=== PATIENT | female | born 1950 | race Native Hawaiian/Other Pacific Islander ===

== ENCOUNTER 2019-09-28 19:08 | Emergency (ER) | payer OTHER ==
[~2019-09-28] VITALS: Ht 152.4 cm; Wt 47.2 kg
[2019-09-28 19:08] VITALS: BP 114/59; TEMP 97.3
[2019-09-28 19:31] LABS: PLATELET COUNT 321 K/uL (152-353)
[2019-09-28 19:38] LABS: POTASSIUM 2.7 mmol/L (3.6-5.2)
[2019-09-28] MEDS ORDERED: BINOSTO70 MG PO (21:43)
[2019-09-28] MEDS ORDERED: ANTACID PO (21:44)
[2019-09-28] MEDS ORDERED: CEFUROXIME500 MG PO (21:45)
[2019-09-28] MEDS ORDERED: COLESTIPOL1 GM PO (21:46)
[2019-09-28] MEDS ORDERED: FAMOTIDINE40 MG PO (21:47)
[2019-09-28] MEDS ORDERED: [UNRECOGNIZED DRUG - OTHER] PO (21:47)
[2019-09-28] MEDS ORDERED: FERRETTS325 MG PO (21:48)
[2019-09-28] MEDS ORDERED: FLONASE AL50 MCG/AC1 NAS (21:49)
[2019-09-28] MEDS ORDERED: HIPREX1 GM PO (21:49)
[2019-09-28] MEDS ORDERED: HYDR5TAB9 PO (21:50)
[2019-09-28] MEDS ORDERED: LOMOTIL2.5 MG PO (21:51)
[2019-09-28] MEDS ORDERED: XALATAN0.005 % OPTH (21:51)
[2019-09-28] MEDS ORDERED: MYSOLINE50 MG PO (21:52)
[2019-09-28] MEDS ORDERED: METOPROLOL25 M1 PO (21:52)
[2019-09-28] MEDS ORDERED: PROBIOTI1 PO (21:53)
[2019-09-28] MEDS ORDERED: VENLAFAXINE150 M1 PO (21:53)
[2019-09-28] MEDS ORDERED: ROPINIROLE1 MG PO (21:54)
[2019-09-28] MEDS ORDERED: TOPAMAX100 MG PO (21:54)
[2019-09-28] MEDS ORDERED: DIAZ2TAB PO (21:55)
[2019-09-28] MEDS ORDERED: VENLAFAXINE225 MG PO (21:55)
[2019-09-28] MEDS ORDERED: VITAMIN B1100 M1 PO (21:56)
[2019-09-28] MEDS ORDERED: VITAMIN D50000 UNIT PO (21:56)
[2019-09-28] MEDS ORDERED: ZYRTEC ALLERGY10 M1 PO (21:57)
== END 2019-09-28 20:46 | disposition other institution (70) ==
LOC: ED 19:08
PROVIDERS: Emergency Medicine
DX: F32.89 Other specified depressive episodes (principal); E87.6 Hypokalemia; N39.0 Urinary tract infection, site not specified; E86.0 Dehydration; Z00.8 Encounter for other general examination
CPT/HCPCS: 36415; 80053; 81000; 85027; 87088; 93005; 99283

== ENCOUNTER 2019-10-06 06:38 | Inpatient (IN) | payer OTHER ==
[~2019-10-06] VITALS: Ht 152.4 cm; Wt 44.0 kg
[2019-10-06] VITALS (27 sets, daily range): BP systolic 75–129; BP diastolic 19–82; TEMP 97.3–99.4; Ht 152.4 cm; Wt 44.0 kg
[~2019-10-06 06:38] MED LIST: ANTACID PO; BINOSTO70 MG PO; CEFUROXIME500 MG PO; COLESTIPOL1 GM PO; DIAZ2TAB PO; FAMOTIDINE40 MG PO; FERRETTS325 MG PO; FLONASE AL50 MCG/AC1 NAS; HIPREX1 GM PO; HYDR5TAB9 PO; LOMOTIL2.5 MG PO; METOPROLOL25 M1 PO; MYSOLINE50 MG PO; PROBIOTI1 PO; ROPINIROLE1 MG PO; TOPAMAX100 MG PO; VENLAFAXINE150 M1 PO; VENLAFAXINE225 MG PO; VITAMIN B1100 M1 PO; VITAMIN D50000 UNIT PO; XALATAN0.005 % OPTH; ZYRTEC ALLERGY10 M1 PO; [UNRECOGNIZED DRUG - OTHER] PO
[2019-10-06 07:58] LABS: SODIUM 138 mmol/L (136-145)
[2019-10-06 08:01] LABS: PLATELET COUNT 537 K/uL (152-353)
[2019-10-07] VITALS (22 sets, daily range): BP systolic 84–119; BP diastolic 37–75; TEMP 97.6–99.1
[2019-10-07 05:41] LABS: PLATELET COUNT 382 K/uL (152-353)
[2019-10-07 05:51] LABS: POTASSIUM 4.4 mmol/L (3.6-5.2)
[2019-10-08] VITALS (12 sets, daily range): BP systolic 82–120; BP diastolic 40–75; TEMP 97.5–98.9
[2019-10-08 05:35] LABS: PLATELET COUNT 310 K/uL (152-353)
[2019-10-08 06:03] LABS: POTASSIUM 4.1 mmol/L (3.6-5.2)
[2019-10-08] MEDS ORDERED: [UNRECOGNIZED DRUG - CODE] IV (14:40)
[2019-10-09] VITALS (9 sets, daily range): BP systolic 94–142; BP diastolic 39–73; TEMP 97.1–98.7
[2019-10-09 09:07] LABS: POTASSIUM 4.3 mmol/L (3.6-5.2)
[2019-10-09 11:03] LABS: PLATELET COUNT 306 K/uL (152-353)
[2019-10-10] VITALS (21 sets, daily range): BP systolic 87–128; BP diastolic 44–79; TEMP 98.1–99.4
[2019-10-10 05:48] LABS: PLATELET COUNT 217 K/uL (152-353)
[2019-10-10 06:53] LABS: POTASSIUM 3.6 mmol/L (3.6-5.2)
[2019-10-11] VITALS (12 sets, daily range): BP systolic 105–123; BP diastolic 51–68; TEMP 97.6–98.6
[2019-10-12] VITALS: BP 119/69; TEMP 98.5
[2019-10-12 04:00] VITALS: BP 115/73; TEMP 98.1
[2019-10-12 08:54] LABS: PLATELET COUNT 261 K/uL (152-353)
[2019-10-12 08:58] LABS: POTASSIUM 3.1 mmol/L (3.6-5.2)
[2019-10-13] VITALS (7 sets, daily range): BP systolic 103–137; BP diastolic 40–69; TEMP 98.2–98.6
[2019-10-13 05:46] LABS: PLATELET COUNT 237 K/uL (152-353)
[2019-10-13 06:02] LABS: POTASSIUM 2.7 mmol/L (3.6-5.2)
[2019-10-14] VITALS (11 sets, daily range): BP systolic 103–127; BP diastolic 49–95; TEMP 97–98.6
[2019-10-14 05:50] LABS: POTASSIUM 3.5 mmol/L (3.6-5.2)
[2019-10-14] MEDS ORDERED: MEGESTROL AC40 MG/ML PO (09:29)
== END 2019-10-14 19:45 | DRG 698 ==
LOC: ED 06:38 → ICU 09:20
PROVIDERS: Family Medicine; Internal Medicine; Internal Medicine Endocrinology, Diabetes & Metabolism; ADMIT Family Medicine
DX: T83.518A Infection and inflammatory reaction due to other urinary catheter, initial encounter (principal); A41.89 Other specified sepsis; N39.0 Urinary tract infection, site not specified; F02.81 Dementia in other diseases classified elsewhere, unspecified severity, with behavioral disturbance; F33.2 Major depressive disorder, recurrent severe without psychotic features; N17.8 Other acute kidney failure; E46 Unspecified protein-calorie malnutrition; Y84.6 Urinary catheterization as the cause of abnormal reaction of the patient, or of later complication, without mention of misadventure at the time of the procedure; Y92.238 Other place in hospital as the place of occurrence of the external cause; G30.8 Other Alzheimer's disease; N18.3 Chronic kidney disease, stage 3 (moderate); J44.9 Chronic obstructive pulmonary disease, unspecified; K21.9 Gastro-esophageal reflux disease without esophagitis; N31.2 Flaccid neuropathic bladder, not elsewhere classified; M15.8 Other polyosteoarthritis; I12.9 Hypertensive chronic kidney disease with stage 1 through stage 4 chronic kidney disease, or unspecified chronic kidney disease; R00.0 Tachycardia, unspecified; E83.51 Hypocalcemia; E87.6 Hypokalemia; E83.42 Hypomagnesemia
CPT/HCPCS: 36415; 36600; 80048; 80053; 81000; 82040; 82150; 82550; 82570; 82805; 83605; 83630; 83690; 83735; 83880; 84300; 84484; 85027; 87040; 87086; 87088; 87324; 87328; 87329; 87449; 89050; 93005; 94760; 96360; 96365; 96375; 96376; 99285; J0610; J0696; J1160; J2405; J3475; J3480; J3490

== ENCOUNTER 2021-08-07 17:10 | Emergency (ER) | payer OTHER ==
[~2021-08-07] VITALS: Ht 152.4 cm; Wt 44.0 kg
[2021-08-07 17:10] VITALS: BP 120/60; TEMP 98.1
[~2021-08-07 17:10] MED LIST changes: +CULTURELL3 PO; +MEGESTROL AC40 MG/ML PO; -PROBIOTI1 PO; +[UNRECOGNIZED DRUG - CODE] IV
[2021-08-07 17:48] LABS: PLATELET COUNT 257 K/uL (152-353)
[2021-08-07 17:57] LABS: POTASSIUM 4.3 mmol/L (3.6-5.2)
[2021-08-08] MEDS ORDERED: VITAMIN D1000 UNIT PO (09:06)
[2021-08-08] MEDS ORDERED: AZO D MANNOSE PO (09:08)
[2021-08-08] MEDS ORDERED: [UNRECOGNIZED DRUG - OTHER] EX (09:10)
[2021-08-08] MEDS ORDERED: LOPERAMIDE2 MG PO (09:10)
[2021-08-08] MEDS ORDERED: FERROUS SULF325 M1 PO (09:11)
[2021-08-08] MEDS ORDERED: LORA0.5T17 PO (09:12)
[2021-08-08] MEDS ORDERED: POTA20TA4 PO (09:16)
[2021-08-08] MEDS ORDERED: ESTR0.6211 PO (09:17)
[2021-08-08] MEDS ORDERED: TOPAMAX100 MG PO (09:17)
[2021-08-08] MEDS ORDERED: THIA100T8 PO (09:18)
[2021-08-08] MEDS ORDERED: HYDROXYZINE HYD25 MG PO (09:19)
[2021-08-08] MEDS ORDERED: DONEPEZIL HYDRO10 M1 PO (09:32)
[2021-08-08] MEDS ORDERED: AZELASTINE0.05 % OPTH (09:34)
== END 2021-08-07 18:38 | disposition still patient (30) ==
LOC: ED 17:10
PROVIDERS: Emergency Medicine Emergency Medical Services
DX: R45.1 Restlessness and agitation (principal); N39.0 Urinary tract infection, site not specified; B37.89 Other sites of candidiasis; Z11.52 Encounter for screening for COVID-19; Z04.6 Encounter for general psychiatric examination, requested by authority
CPT/HCPCS: 80053; 81000; 85027; 87086; 87088; 87635; 93005; 99283; U0003